=== PATIENT | male | born 1965 | race African-American/Black ===

== ENCOUNTER 2020-06-23 11:35 | Outpatient (REF) | payer OTHER, SELFPAY | END 2020-06-23 11:36 | disposition home or self-care (01) | LOC: HO.LAB 11:35 | PROVIDERS: Visit Provider Internal Medicine | DX: Z20.828 Contact with and (suspected) exposure to other viral communicable diseases (principal) | CPT/HCPCS: 36415; 87635 ==

== ENCOUNTER 2020-08-08 08:25 | Outpatient (REF) | payer OTHER, SELFPAY | END 2020-08-08 08:26 | disposition home or self-care (01) | LOC: HO.LAB 08:25 | PROVIDERS: Visit Provider Internal Medicine | DX: Z20.828 Contact with and (suspected) exposure to other viral communicable diseases (principal) | CPT/HCPCS: C9803; U0003 ==

== ENCOUNTER 2020-09-11 10:10 | Outpatient (REF) | payer OTHER, MEDICAID, SELFPAY | END 2020-09-11 10:11 | disposition home or self-care (01) | LOC: HO.LAB 10:10 | PROVIDERS: Visit Provider Internal Medicine | DX: Z20.828 Contact with and (suspected) exposure to other viral communicable diseases (principal) | CPT/HCPCS: C9803; U0003 ==

== ENCOUNTER 2021-05-29 08:35 | Outpatient (REF) | payer SELFPAY ==
[2021-05-29 11:14] LABS: COVID-19 Test Negative (Negative)
== END 2021-05-29 08:36 | disposition home or self-care (01) ==
LOC: HO.LAB 08:35
PROVIDERS: Visit Provider Internal Medicine
DX: Z20.822 Contact with and (suspected) exposure to COVID-19 (principal)
CPT/HCPCS: 36415; 87635; C9803